=== PATIENT | male | born 1930 | race African-American/Black ===

== ENCOUNTER 2017-10-27 15:37 | Emergency (ER) | payer BC ==
[~2017-10-27] VITALS: Ht 182.9 cm; Wt 82.0 kg
[2017-10-27 15:40] VITALS: BP 122/69
== END 2017-10-27 18:26 | disposition left against medical advice (07) ==
LOC: ER 16:02
DX: R53.1 Weakness (principal); Z53.21 Procedure and treatment not carried out due to patient leaving prior to being seen by health care provider